=== PATIENT | female | born 1950 | race Caucasian/White ===

== ENCOUNTER 2017-09-16 11:08 | Emergency (ER) | payer MEDICARE, OTHER | END 2017-09-16 15:58 | disposition home or self-care (01) | LOC: E/R 11:08 → FTE 15:58 | DX: J20.9 Acute bronchitis, unspecified (principal); J02.9 Acute pharyngitis, unspecified; I10 Essential (primary) hypertension; E11.9 Type 2 diabetes mellitus without complications; Z79.4 Long term (current) use of insulin; Z79.82 Long term (current) use of aspirin | CPT/HCPCS: 71046; 82962; 99284-25 ==